=== PATIENT | male | born 1995 | race African-American/Black ===

== ENCOUNTER 2017-12-17 18:06 | Emergency (ER) | payer OTHER ==
[2017-12-17 18:13] VITALS: BP 139/85
--- NOTE | 2017-12-17 18:33 | ED Physician Documentation ---
PD HPI HEENT - Stated complaint Stated Complaint: THROAT PX - Chief complaint Chief Complaint: Heent - History obtained from History obtained from: Patient - History of Present Illness Timing - onset: Other (Sore throat for a week associated with chills and fatigue but no Runny nose or cough. No measured fevers. He also notes that he was elbowed while playing basketball 3 nights ago and would like something for the wound on his lip.) Review of Systems Constitutional: denies: Fever, Chills Throat: reports: Sore throat Cardiac: denies: Chest pain / pressure, Palpitations Respiratory: denies: Dyspnea, Cough PD PAST MEDICAL HISTORY - Past Medical History Past Medical History: No - Past Surgical History Past Surgical History: No - Present Medications Home Medications: Ambulatory Orders Medication Instructions Recorded Confirmed Bacitracin Zinc Oint 1 applic TOP BID #1 tube 12/17/17 Ibuprofen [Motrin] 800 mg PO Q8H PRN #30 tablet 12/17/17 - Allergies Allergies/Adverse Reactions: Allergies Allergy/AdvReac Type Severity Reaction Status Date / Time No Known Drug Allergies Allergy Verified 12/17/17 18:13 - Social History Does the pt smoke?: No Smoking Status: Never smoker PD ED PE NORMAL - Vitals Vital signs reviewed: Yes - General General: Alert and oriented X 3, No acute distress - HEENT HEENT: Other (Slightly swollen tonsils with small exudates but no adenopathy. He has abrasion on the lower lip that is healing okay.) - Neck Neck: Supple, no meningeal sign - Respiratory Respiratory: No respiratory distress, Clear bilaterally - Abdomen Abdomen: Non tender - Neuro Neuro: Alert and oriented X 3, Normal speech Results - Vitals Vitals: Vital Signs - 24 hr 12/17/17 18:11 Temperature 36.4 C L Heart Rate 73 Respiratory 18 Rate Blood Pressure 139/85 H O2 Saturation 97 Oxygen O2 Source Room air - Labs Labs: Laboratory Tests 12/17/17 18:15 Group A Strep Rapid Negative PD MEDICAL DECISION MAKING - Sepsis Event Vital Signs: Vital Signs - 24 hr 12/17/17 18:11 Temperature 36.4 C L Heart Rate 73 Respiratory 18 Rate Blood Pressure 139/85 H O2 Saturation 97 Oxygen O2 Source Room air Departure - Departure Disposition: 01 Home, Self Care Clinical Impression: Sore throat Lip abrasion Qualifiers: Encounter type: initial encounter Qualified Code(s): S00.511A - Abrasion of lip, initial encounter Condition: Good Record reviewed to determine appropriate education?: Yes Instructions: ED Avulsion Dermal, ED Pharyngitis Viral Report Pending Prescriptions: Bacitracin Zinc Oint 1 applic TOP BID #1 tube Ibuprofen [Motrin] 800 mg PO Q8H PRN #30 tablet PRN Reason: PAIN &/OR FEVER Comments: Your rapid strep test is negative. We will also culture your throat and call you if a bacterial pathogen is isolated. Return if worse or if new symptoms develop. [place] if not better. Your blood pressure was elevated today on check into the emergency department. This does not mean that you have hypertension, it is a common phenomenon to come to the emergency department and have elevated blood pressure. I recommend that you see your primary care physician within the week to have it rechecked when you are feeling better.
== END 2017-12-17 18:49 | disposition home or self-care (01) ==
LOC: ED 18:06
DX: J02.9 Acute pharyngitis, unspecified (principal); S00.511A Abrasion of lip, initial encounter; W50.0XXA Accidental hit or strike by another person, initial encounter; Y93.67 Activity, basketball
CPT/HCPCS: 87070; 87430; 99283

== ENCOUNTER 2017-12-18 10:46 | Emergency (ER) | payer OTHER ==
[2017-12-18 11:03] VITALS: BP 143/70
[2017-12-18] MEDS ORDERED: BENZOCAINE/MENTHOL LOZENGE MM STA (12:10)
[2017-12-18] MEDS ORDERED: AMOXICILLIN 250 MG CAPSULE PO STA (12:10)
[2017-12-18] MEDS ORDERED: DEXAMETHASONE 10 MG/ML VIAL PO STA (12:10)
[2017-12-18] MEDS ORDERED: CHERRY SYRUP 10 ML UDC PO ONE (12:15)
--- NOTE | 2017-12-18 12:26 | ED Physician Documentation ---
History of Present Illness - Stated complaint Stated Complaint: FEVER/NAUSEA - Chief complaint Chief Complaint: Fever - Additonal information Additional information: hx from pt [address] [place] male 2 concerns 1) elbow vs lower lip in basketball now swollen and yellow concern for infection 2) bad sore throat fever mild cough [facility] but no appt - was not seen by provider - sent to ER Review of Systems Constitutional: reports: Fever, Myalgias, Fatigue Throat: reports: Sore throat Respiratory: reports: Cough GI: denies: Abdominal Pain, Nausea, Vomiting, Diarrhea Immunocompromised: denies: Immunocompromised PD PAST MEDICAL HISTORY - Past Medical History Past Medical History: No - Past Surgical History Past Surgical History: No - Present Medications Home Medications: Ambulatory Orders Medication Instructions Recorded Confirmed Bacitracin Zinc Oint 1 applic TOP BID #1 tube 12/17/17 Ibuprofen [Motrin] 800 mg PO Q8H PRN #30 tablet 12/17/17 Amoxicillin 500 mg PO Q8H #30 capsule 12/18/17 - Allergies Allergies/Adverse Reactions: Allergies Allergy/AdvReac Type Severity Reaction Status Date / Time No Known Drug Allergies Allergy Verified 12/18/17 11:03 - Social History Does the pt smoke?: No Smoking Status: Never smoker PD ED PE NORMAL - Vitals Vital signs reviewed: Yes - General General: Alert and oriented X 3 - HEENT HEENT: Ears normal. 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, abrasions to lower lip with swellign and yeloow crusting, no pain with tracheal manipulation, ant no posterior cerv adenopathy) - Cardiac Cardiac: RRR - Respiratory Respiratory: No respiratory distress, Clear bilaterally - Abdomen Abdomen: Soft, Non tender, No organomegaly Results - Vitals Vitals: Vital Signs - 24 hr 12/18/17 11:00 Temperature 36.9 C Heart Rate 73 Respiratory 16 Rate Blood Pressure 143/70 H O2 Saturation 100 Oxygen O2 Source Room air PD MEDICAL DECISION MAKING - Sepsis Event Vital Signs: Vital Signs - 24 hr 12/18/17 11:00 Temperature 36.9 C Heart Rate 73 Respiratory 16 Rate Blood Pressure 143/70 H O2 Saturation 100 Oxygen O2 Source Room air Departure - Departure Disposition: 01 Home, Self Care Clinical Impression: Exudative pharyngitis Infected lip laceration Qualifiers: Encounter type: initial encounter Qualified Code(s): S01.511A - Laceration without foreign body of lip, initial encounter; L08.9 - Local infection of the skin and subcutaneous tissue, unspecified Condition: Good Instructions: ED Strep Pharyngitis Poss Follow-Up: SHIKHA Barnett [Provider Group] Prescriptions: Amoxicillin 500 mg PO Q8H #30 capsule Comments: The antibiotics prescribed will help the throat as well as the lip infection. May also apply antibiotic ointment to the outer lip (not in the mouth) You were given a dose of steroids to decrease the throat swelling and pain and help you swallow better Rest and drink plenty of fluids Recommend motrin tylenol and chloraseptic spray to ease your throat pain SIQ or 2 days Return if worse Forms: Activity restrictions
== END 2017-12-18 12:38 | disposition home or self-care (01) ==
LOC: ED 10:46
DX: J02.9 Acute pharyngitis, unspecified (principal); L08.9 Local infection of the skin and subcutaneous tissue, unspecified; X58.XXXA Exposure to other specified factors, initial encounter; Y93.67 Activity, basketball
CPT/HCPCS: 99283; A9270

== ENCOUNTER 2018-04-25 22:02 | Emergency (ER) | payer OTHER ==
--- NOTE | 2018-04-25 22:45 | XRAY Report ---
Reason: sports injury; c/o pain L shoulder w/ movement. Procedure Date: 04/25/2018 Accession Number: [id number] / [id number] Procedure: XR - Shoulder 3 View LT CPT Code: FULL RESULT: EXAM: LEFT SHOULDER RADIOGRAPHY EXAM DATE: 04/25/2018 10:16 PM. CLINICAL HISTORY: Sports injury; c/o pain L shoulder w/ movement. History of multiple prior shoulder dislocations. Left shoulder pain, basketball injury. COMPARISON: None. TECHNIQUE: 3 views. FINDINGS: Bones: Normal. No fracture or bone lesion. Joints: The glenohumeral and acromioclavicular joints are normal. Soft tissues: The visualized hemithorax is unremarkable. No soft tissue swelling. IMPRESSION: Normal shoulder radiography. [facility]
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
[2018-04-26] MEDS: ACETAMINOPHEN 325 MG TABLET PO STA (00:06)
[2018-04-26] MEDS: IBUPROFEN 600 MG TABLET PO STA (00:06)
[2018-04-26 00:18] VITALS: BP 135/80
== END 2018-04-26 00:20 | disposition home or self-care (01) ==
LOC: ED 22:02
DX: M24.412 Recurrent dislocation, left shoulder (principal); X50.1XXA Overexertion from prolonged static or awkward postures, initial encounter; Y99.0 Civilian activity done for income or pay
CPT/HCPCS: 99282; 99283

== ENCOUNTER 2019-04-16 08:38 | Day surgery (SDC) | payer OTHER ==
[2019-04-16] MEDS ORDERED: LACTATED RINGERS 1,000 ML IV ONE ×2 (08:46→13:37)
[2019-04-16] MEDS ORDERED: cefTRIAXone 2 GM VIAL ONE (08:49)
[2019-04-16] MEDS ORDERED: BUPIVACAINE 0.5% PF 30 ML VIAL ONE (09:08)
[2019-04-16] MEDS ORDERED: EPINEPHrine 1 MG/ML AMP ONE (09:09)
--- NOTE | 2019-04-16 09:39 | ANESTHESIA ---
Pre-Anesthesia VS, & Labs - Diagnosis L shoulder instability, Hill Sachs lesion, possible remplissage - Procedure L shoulder scope w/SLAP repair, possible remplissage Vital Signs: Temp Pulse Resp BP Pulse Ox 36.4 C L 61 18 140/84 H 100 04/16/19 08:56 04/16/19 08:56 04/16/19 08:56 04/16/19 08:56 04/16/19 08:56 Height 5 ft 11 in Weight (kg) 77.11 kg Body Mass Index 23.8 - NPO >8 hours Home Medications and Allergies Home Medications: Ambulatory Orders No Known Home Medications 04/12/19 No Known Home Medications 04/12/19 Allergies/Adverse Reactions: Allergies Allergy/AdvReac Type Severity Reaction Status Date / Time No Known Drug Allergies Allergy Verified 04/12/19 12:48 Anes History & Medical History - Anesthetic History Anesthesia Complications: reports: No previous complications Family history of Anesthesia Complications: Denies Family history of Malignant Hyperthermia: Denies - Medical History Cardiovascular: reports: None Pulmonary: reports: None Gastrointestinal: reports: None Urinary: reports: None Musculoskeletal: reports: Other Endocrine/Autoimmune: reports: None Skin: reports: None Smoking Status: Never smoker Psychosocial: reports: Alcohol (social) - Surgical History Other Past Surgical History: no previous surgeries Exam General: Alert, Oriented x3, Cooperative Dental: WNL Mouth Opening: Greater than 4 Fingerbreadths Neck Mobility: Normal Mallampati classification: I Thyromental Distance: greater than 6 cm Respiratory: Lungs clear, Normal breath sounds, No respiratory distress Cardiovascular: Regular rate Neurological: Normal speech Mental/Cognitive Status: Alert/Oriented X3, Normal for patient Cognitive Status: Within normal limits Plan Anesthesia Type: General, Supraclavicular Block Regional Block: Per Surgeon's request for Post Op pain control Consent for Procedure(s) Verified and Reviewed: Yes Code Status: Attempt Resuscitation ASA classification: 1-Healthy patient Is this case an emergency?: No
[2019-04-16] MEDS ORDERED: ONDANSETRON 4 MG/2 ML VIAL IVP ONE (10:16)
[2019-04-16] MEDS ORDERED: LIDOCAINE-MPF 2% 5 ML VIAL IM ONE (10:16)
[2019-04-16] MEDS ORDERED: ROCURONIUM 50 MG/5 ML VIAL IVP ONE (10:16)
[2019-04-16] MEDS ORDERED: DEXAMETHASONE 4 MG/ML VIAL IVP ONE (10:16)
[2019-04-16] MEDS ORDERED: NEOSTIGMINE 1 MG/1 ML 10 ML MDV IVP ONE (10:16)
[2019-04-16] MEDS ORDERED: PROPOFOL 200 MG/20 ML VIAL IVP ONE (10:16)
[2019-04-16] MEDS ORDERED: MIDAZOLAM 2 MG/2 ML VIAL IVP ONE (10:16)
[2019-04-16] MEDS ORDERED: GLYCOPYRROLATE 1 MG/5 ML VIAL IVP ONE (10:16)
[2019-04-16] MEDS ORDERED: EPINEPHrine 1 MG/ML AMP IR ONE (11:03)
[2019-04-16] MEDS ORDERED: oxyCODONE 5 MG TABLET PO PRN (13:32)
[2019-04-16] MEDS ORDERED: ONDANSETRON 4 MG/2 ML VIAL IVP PRN (13:32)
[2019-04-16] MEDS ORDERED: ACETAMINOPHEN 1,000 MG/100 ML 100 ML IV ONE (13:34)
--- NOTE | 2019-04-16 13:43 | OPERATIVE REPORT ---
Operative Report - Other Other Information/Narrative: Date of Surgery: 16 April 2019 Pre-Op Diagnosis: Left shoulder anterior instability. Labral tear. Hill-Sachs lesion Procedure: Left shoulder arthroscopic Bankart repair with Remplissage Postop Diagnosis: Same Primary Surgeon: Maximino Yuan Secondary Surgeon: Kash Cruz Complications: None EBL: 20 cc IMPLANTS: Arthrex knotless corkscrew x2. Arthrex knotless suture tack x4 POSTOPERATIVE PLAN: 0-2 weeks-Sling at all times. Pendulum exercises 5 times per day. 2-6 weeks-Passive range of motion with the following limits: FF to 120 with thumb up, ER to 30, abduction to 90 with palm down 6-12 weeks-Active range of motion in all planes without limitation. Isometric rotator cuff strengthening is allowed 12-16 weeks-Gradually increase strengthening 16 weeks and beyond-Introduce dynamic activities EXAMINATION UNDER ANESTHESIA: ROM: Full Anterior load and shift: Grade 2 instability Posterior load and shift: Normal Inferior sulcus: Normal ARTHROSCOPIC FINDINGS: Rotator interval: Injected synovium stained with hemosiderin throughout the s houlder. No tear of the rotator interval. Biceps tendon & SLAP: Type I SLAP tear was debrided. Biceps tendon and anchor was intact. Subscapularis: Normal Rotator Cuff: Normal HAGL: Small split inferiorly without significant displacement which was left in place Labrum: Anterior Bankart tear that had medialized extending from 7:00 to 3:00. The labrum had ossified or this was a bony Bankart because there was some bone within the interval. This was incorporated into the repair. Glenoid Cartilage: Large GLAD lesion along the anterior rim measuring 5 mm x 20 mm. This was debrided and the labrum was repaired into it. There was a 10 to 15% bone loss anteriorly Humeral Head Cartilage: Large but shallow Hill-Sachs lesion. Arthroscopic range of motion showed that it engaged at the 9090 position. Rempel size was performed INDICATION FOR SURGERY: 23-year-old male with multiple shoulder dislocations and persistent instability on daily activities and while playing sports he had a Bankart lesion without significant bone involved and a Hill-Sachs lesion.. Nonoperative managment failed to resolve symptoms. The risks, benefits, and alternatives were discussed. Risks included pain, bleeding, infection, damage to nearby structures, lack of symptom relief, implant complications, stiffness, need for further surgeries, DVT, PE, stroke, and even . He signed a written consent form. PROCEDURE IN DETAIL: The patient was met in the preoperative holding on the day of the procedure. Operative extremity was signed. Consent was verified. He desired to proceed. Regional anesthesia was obtained in the preoperative area. They were brought to the operating room and surrendered to anesthesia. Once general anesthesia was obtained they were placed in the lateral decubitus position with the operative side up. An axillary roll was placed and all bony prominences were well-padded. They were then prepped and draped in the standard sterile fashion. A surgical timeout was held to confirm the patient procedure, identity, procedure, laterality, allergies, images, and antibiotics. All were in agreement we proceeded. Balanced suspension was applied and a standard diagnostic arthroscopy was performed utilizing posterior and anterior superior portal sites. The anterior superior portal site was created under direct visualization. The findings of the diagnostic arthroscopy can be found above. A mid glenoid portal was then created under direct visualization bordering the subscapularis tendon. I then used a combination of high and low angled elevators to develop the labral tear and release it from off the glenoid neck. I then used to the pineapple rasp to finalize my release and abraded the bone to a bleeding bed. A sucker shaver was placed in the interval to debride any loose tissue and further abrade the glenoid neck. The labrum had ossified and/or there is a small amount of bony Bankart within the tissue. The glad lesion was debrided at that time. Following this I prepared the Hill-Sachs lesion. I removed lateral traction to be able to work more easily at that location. A shaver and a pineapple rasp was used to debride synovial tissue that had scarred over the bed of bone. The bed of bone began to bleed. I then created a new portal site but did not bring the cannula all the way into the joint, I left it just on the other side of the capsule in the subacromial space. I then brought the drill guide in and placed an inferior anchor through the capsule. I then translated the guide 1 to 2 cm further superiorly and placed the second anchor through the capsule. I then passed the knotless sutures in preparation for tightening but did not tighten them completely. The sutures were saved until the labrum had been fixed. I then established a percutaneous 7:00 portal utilizing the Arthrex system. I then placed an anchor at the 0 6:30 position. The suture was passed using an appropriate 25 degree suture lasso. The labrum was secured using knotless technique. Appropriate tension was confirmed with a probe and the excess suture was cut. Using the same technique additional anchors were placed at 5:00, 4:00, and 3:00. The capsule was advanced to restore proper tension. The bone within the labrum was incorporated into the repair. Proper capsular tension was restored and a labral bumper was recreated. Balanced suspension was then re leased. The rim. Sutures were then tightened under direct visualization and the capsule reduced nicely into the Hill-Sachs lesion. Final images were then taken. The portal sites were then closed with 3-0 Monocryl buried. Mastisol and Steri- Strips were applied. A sterile dressing and a sling was applied. He was awakened and transferred to the recovery room.
[2019-04-16] MEDS ORDERED: fentaNYL 100 MCG/2 ML VIAL ONE (13:49)
[2019-04-16] MEDS ORDERED: HYDROmorphone 0.5 MG/0.5 ML SYRINGE ONE (13:49)
[2019-04-16 15:02] VITALS: BP 149/94
== END 2019-04-16 08:39 | disposition home or self-care (01) ==
LOC: SDS 08:38
PROVIDERS: ATTEND Orthopaedic Surgery
PROC: 0RQK4ZZ Repair Left Shoulder Joint, Percutaneous Endoscopic Approach (ICD-10-PCS; principal; 2019-04-16 10:30)
DX: S43.432A Superior glenoid labrum lesion of left shoulder, initial encounter (principal); S42.295A Other nondisplaced fracture of upper end of left humerus, initial encounter for closed fracture

== ENCOUNTER 2019-08-18 14:38 | Emergency (ER) | payer OTHER ==
[2019-08-18] MEDS ORDERED: ONDANSETRON 4 MG/2 ML VIAL IVP STA (14:56)
[2019-08-18] MEDS ORDERED: PANTOPRAZOLE 40 MG VIAL IVP STA (14:56)
[2019-08-18] MEDS ORDERED: SODIUM CHLORIDE 0.9% 1,000 ML IV STA (14:56)
[2019-08-18 15:10] LABS: BASOPHILS % (AUTO) 0.8 %; EOSINOPHILS % (AUTO) 0.6 %; HGB - HEMOGLOBIN 17.9 g/dL (14.0-18.0); LYMPHOCYTES # (AUTO) 1.4 10^3/uL (1.5-3.5); LYMPHOCYTES % (AUTO) 26.1 %; MEAN CORPUSCULAR HEMOGLOBIN 29.2 pg (27.0-31.0); MEAN CORPUSCULAR VOLUME 85.7 fL (80.0-94.0); MEAN PLATELET VOLUME 10.2 fL (7.4-11.4); MONOCYTES # (AUTO) 0.4 10^3/uL (0.0-1.0); NEUTROPHILS # (AUTO) 3.4 10^3/uL (1.5-6.6); NEUTROPHILS % (AUTO) 64.1 %; PLT - PLATELET COUNT 310 10^3/uL (130-450); RED BLOOD COUNT 6.14 10^6/uL (4.70-6.10); RED CELL DISTRIBUTION WIDTH 12.4 % (12.0-15.0); WHITE BLOOD COUNT 5.3 x10^3/uL (4.8-10.8)
--- NOTE | 2019-08-18 15:13 | ED Physician Documentation ---
History of Present Illness - Stated complaint Stated Complaint: VOMITING - Chief complaint Chief Complaint: Abd Pain - History obtained from History obtained from: Patient - History of Present Illness Timing: Today Pain level max: 0 Pain level now: 0 - Additonal information Additional information: 24-year-old male presents to the emergency department stating That he drank alcohol last night and had vomiting last night and this morning. Small amount of blood in the vomit this morning. Nothing makes it better or worse. No abdominal pain. No diarrhea. No constipation. Review of Systems Constitutional: denies: Fever, Chills Cardiac: denies: Chest pain / pressure Respiratory: denies: Cough GI: reports: Nausea, Vomiting, Hematemesis (Small amount of bright red blood in the vomit after vomiting several times). denies: Diarrhea Skin: denies: Rash Musculoskeletal: denies: Neck pain, Back pain Neurologic: denies: Headache PD PAST MEDICAL HISTORY - Past Medical History Cardiovascular: None Respiratory: None Endocrine/Autoimmune: None GI: None : None HEENT: None Psych: None Musculoskeletal: Other Derm: None - Past Surgical History Past Surgical History: No - Present Medications Home Medications: Ambulatory Orders Medication Instructions Recorded Confirmed Ondansetron Odt [Zofran] 4 mg TL Q6H PRN #10 tablet 08/18/19 - Allergies Allergies/Adverse Reactions: Allergies Allergy/AdvReac Type Severity Reaction Status Date / Time No Known Drug Allergies Allergy Verified 08/18/19 14:45 - Social History Does the pt smoke?: No Smoking Status: Never smoker Does the pt drink ETOH?: No Does the pt have substance abuse?: No - Immunizations Immunizations are current?: Yes - POLST Patient has POLST: No PD ED PE NORMAL - Vitals Vital signs reviewed: Yes - General General: Alert and oriented X 3, No acute distress - HEENT HEENT: Moist mucous membranes - Neck Neck: Supple, no meningeal sign - Cardiac Cardiac: RRR - Respiratory Respiratory: No respiratory distress, Clear bilaterally - Abdomen Abdomen: Soft, Non tender, Non distended - Derm Derm: Warm and dry, No rash - Extremities Extremities: No edema - Neuro Neuro: Alert and oriented X 3 - Psych Psych: Normal mood, Normal affect Results - Vitals Vitals: Vital Signs - 24 hr 08/18/19 08/18/19 14:43 14:45 Temperature 36.1 C L Heart Rate 76 75 Respiratory 14 16 Rate Blood Pressure 151/89 H 148/65 H O2 Saturation 97 98 Oxygen O2 Source Room air - Labs Labs: Laboratory Tests 08/18/19 08/18/19 08/18/19 15:00 15:00 15:15 WBC 5.3 RBC 6.14 H Hgb 17.9 Hct 52.6 H MCV 85.7 MCH 29.2 MCHC 34.0 RDW 12.4 Plt Count 310 MPV 10.2 Neut # (Auto) 3.4 Lymph # (Auto) 1.4 L [place] # (Auto) 0.4 Eos # (Auto) 0.0 Baso # (Auto) 0.0 Absolute Nucleated RBC 0.00 Nucleated RBC % 0.0 PT 14.3 H INR 1.3 H Sodium 139 Potassium 4.3 Chloride 102 Carbon Dioxide 26 Anion Gap 11.0 BUN 14 Creatinine 1.3 H Estimated GFR (MDRD) 84 L Glucose 115 H Calcium 9.4 Total Bilirubin 0.9 AST 35 ALT 38 Alkaline Phosphatase 70 Total Protein 8.7 H Albumin 5.1 Globulin 3.6 Albumin/Globulin Ratio 1.4 Lipase 25 PD MEDICAL DECISION MAKING - ED course Complexity details: reviewed results, re-evaluated patient, considered differential, d/w patient ED course: Patient is well-appearing, nontoxic. Afebrile. Tolerating p.o. without difficulty. Given Zofran, Protonix. No significant lab abnormalities. Given IV fluids. We will continue supportive care at home and have him follow-up with his doctor for further care. The blood is likely secondary to repeated emesis. Patient counseled regarding signs and symptoms for which I believe and urgent re-evaluation would be necessary. Patient with good understanding of and agreement to plan and is comfortable going home at this time This document was made in part using voice recognition software. While efforts are made to proofread this document, sound alike and grammatical errors may occur. Departure - Departure Disposition: 01 Home, Self Care Clinical Impression: Vomiting Qualifiers: Vomiting type: unspecified Vomiting Intractability: non-intractable Nausea presence: with nausea Qualified Code(s): R11.2 - Nausea with vomiting, unspecified Condition: Good Instructions: ED Nausea Vomiting Follow-Up: your,doctor in 1 week if not better [Other] Prescriptions: Ondansetron Odt [Zofran] 4 mg TL Q6H PRN #10 tablet PRN Reason: Nausea / Vomiting Comments: Drink plenty of fluids today. Return If you worsen. Avoid alcohol.
[2019-08-18 15:21] LABS: ALBUMIN 5.1 g/dL (3.2-5.5); ALBUMIN/GLOBULIN RATIO 1.4 (1.0-2.2); BILIRUBIN,TOTAL 0.9 mg/dL (0.2-1.0); CALCIUM 9.4 mg/dL (8.5-10.3); CREATININE 1.3 mg/dL (0.6-1.2); TOTAL PROTEIN 8.7 g/dL (6.7-8.2)
[2019-08-18 15:30] LABS: INR 1.3 (0.8-1.2); PT - PROTHROMBIN TIME 14.3 secs (9.9-12.6)
[2019-08-18 16:01] VITALS: BP 114/68
== END 2019-08-18 16:00 | disposition home or self-care (01) ==
LOC: ED 14:38
DX: R11.2 Nausea with vomiting, unspecified (principal)
CPT/HCPCS: 36415; 80053; 83690; 85025; 85610; 86850; 86900; 86901; 96374; 99284

== ENCOUNTER 2020-02-02 00:33 | Emergency (ER) | payer OTHER ==
--- NOTE | 2020-02-02 01:36 | ED Physician Documentation ---
PD HPI LOWER EXT INJURY - Stated complaint Stated Complaint: LT ANKLE INJURY - Chief complaint Chief Complaint: Ext Problem - History obtained from History obtained from: Patient - History of Present Illness PD HPI LOW EXT INJURY LOCATION: Left, Ankle Type of injury: Twist Where injury occurred: Home Timing - onset: Enter time (22:00), Today Timing - details: Abrupt onset Pain level now: 8 Improved by: Rest Worsened by: Moving, Palpating Associated symptoms: Swelling. No: Weakness, Numbness Similar symptoms before: Has not had sx before Recently seen: Not recently seen - Additional information Additional information: c/o sudden onset left ankle pain approximately 10 PM tonight when walking down stairs in his house. He missed a step, causing twisting injury. Unable to weight-bear due to pain Review of Systems Musculoskeletal: reports: Joint pain, Joint swelling, Pain with weight bearing Neurologic: denies: Focal weakness, Numbness PD PAST MEDICAL HISTORY - Past Medical History Cardiovascular: None Respiratory: None Endocrine/Autoimmune: None GI: None : None HEENT: None Psych: None Musculoskeletal: Other Derm: None - Past Surgical History Past Surgical History: No - Present Medications Home Medications: Ambulatory Orders Medication Instructions Recorded Confirmed HYDROcod/ACETAM 5/325 [Harrison 5/325] 1 - 2 ea PO Q6H PRN #15 tablet 02/02/20 - Allergies Allergies/Adverse Reactions: Allergies Allergy/AdvReac Type Severity Reaction Status Date / Time No Known Drug Allergies Allergy Verified 02/02/20 00:39 - Social History Does the pt smoke?: No Smoking Status: Never smoker Does the pt drink ETOH?: No Does the pt have substance abuse?: No - Immunizations Immunizations are current?: Yes - POLST Patient has POLST: No PD ED PE NORMAL - Vitals Vital signs reviewed: Yes - General General: Alert and oriented X 3, No acute distress (at rest), Well developed/nourished - Derm Derm: Normal color, Warm and dry - Neuro Neuro: No motor deficit, No sensory deficit PD ED PE EXPANDED - Extremities Extremities: Other (TTP left ankle, most pronounced at lateral malleolus with mild TTP lateral asepct forefoot) Results - Vitals Vitals: Oxygen O2 Source Room air - Rads (name of study) left foot xrays Radiology: Prelim report reviewed, See rad report left ankle xrays Radiology: Prelim report reviewed, See rad report PD MEDICAL DECISION MAKING - ED course Complexity details: reviewed results, re-evaluated patient, considered differential, d/w patient Departure - Departure Disposition: 01 Home, Self Care Clinical Impression: Avulsion fracture of left ankle Condition: Good Instructions: ED Crutch Walking, ED Fx Ankle Lateral Malleolus Follow-Up: Junior Warner MD [Provider Admit Priv/Credential] - Within 1 week Prescriptions: HYDROcod/ACETAM 5/325 [Harrison 5/325] 1 - 2 ea PO Q6H PRN #15 tablet PRN Reason: Pain Forms: Activity restrictions Discharge Date/Time: 02/02/20 03:34
[2020-02-02] MEDS ORDERED: IBUPROFEN 600 MG TABLET PO STA (01:46)
[2020-02-02] MEDS ORDERED: HYDROcod/ACETAM 5/325 MG TABLET PO STA (03:16)
[2020-02-02 03:36] VITALS: BP 125/88
--- NOTE | 2020-02-02 07:24 | XRAY Report ---
PROCEDURE: Foot 3 View LT INDICATIONS: injury, pain, tenderness TECHNIQUE: 3 views of the foot were acquired. COMPARISON: None FINDINGS: Bones: No fractures or dislocations. No suspicious bony lesions. Soft tissues: Trace tibiotalar joint effusion. Achilles tendon appears normal. IMPRESSION: 1. Trace tibiotalar joint effusion. 2. No visible fracture. 3. Concordant with preliminary report. Reviewed by: Helen Stanton MD on 02/02/2020 7:23 AM [facility] Approved by: Helen Stanton MD on 02/02/2020 7:23 AM PST Station ID: [id number]
--- NOTE | 2020-02-02 07:26 | XRAY Report ---
PROCEDURE: Ankle 3 View LT INDICATIONS: injury, pain, tenderness TECHNIQUE: 3 views of the ankle were acquired. COMPARISON: None FINDINGS: Bones: Tiny curvilinear avulsion fracture off the distal tip of the fibula. Bones are otherwise intac t.. Ankle mortise is normally aligned. No suspicious bony lesions. Soft tissues: Trace tibiotalar joint effusion. Achilles tendon appears normal. IMPRESSION: 1. Distal fibular avulsion fracture. 2. Trace tibiotalar joint effusion. 3. Concordant with preliminary report. Reviewed by: Helen Stanton MD on 02/02/2020 7:24 AM PST Approved by: Helen Stanton MD on 02/02/2020 7:24 AM PST Station ID: [id number]
== END 2020-02-02 03:34 | disposition home or self-care (01) ==
LOC: ED 00:33
DX: S82.892A Other fracture of left lower leg, initial encounter for closed fracture (principal); M25.472 Effusion, left ankle; W10.9XXA Fall (on) (from) unspecified stairs and steps, initial encounter; X50.1XXA Overexertion from prolonged static or awkward postures, initial encounter; Y92.009 Unspecified place in unspecified non-institutional (private) residence as the place of occurrence of the external cause
CPT/HCPCS: 73610; 73630; 99283; A9270

== ENCOUNTER 2020-04-04 11:40 | Emergency (ER) | payer OTHER ==
[2020-04-04] MEDS ORDERED: DEXAMETHASONE 10 MG/ML VIAL IM STA (12:29)
--- NOTE | 2020-04-04 12:31 | ED Physician Documentation ---
History of Present Illness - Stated complaint Stated Complaint: RASH - Chief complaint Chief Complaint: Allergic Rx - History obtained from History obtained from: Patient - Additonal information Additional information: 24-year-old man with no past medical history, No known allergies, presents with rash since having a sleep study on Monday with gel adhesive placement on his arms. He states that the rash began the next morning on his arms and then spread to his trunk, back, and both legs. It is pruritic, improved with oral Benadryl. He saw [facility] yesterday and was told to come to the emergency room if his rash got worse. Patient denies fever, facial/oral/throat swelling, chest pain, shortness of breath, nausea vomiting dizziness or headache. denies travel, sick contacts, covid exposure. Review of Systems Ten Systems: 10 systems reviewed and negative Constitutional: denies: Fever, Chills Skin: reports: Rash PD PAST MEDICAL HISTORY - Past Medical History Past Medical History: Yes Cardiovascular: Hypertension Respiratory: None Neuro: None Endocrine/Autoimmune: None GI: None : None HEENT: None Psych: None Musculoskeletal: Other Derm: None - Past Surgical History Past Surgical History: Yes Ortho: Shoulder arthroplasty - Present Medications Home Medications: Ambulatory Orders Medication Instructions Recorded Confirmed Ibuprofen [Motrin] 600 mg PO Q6H PRN 04/04/20 04/04/20 Methylprednisolone [Medrol Dose 1 each PO .PACKAGEINSTRUCTIONS 04/04/20 04/04/20 Pack] Ondansetron Odt [Zofran Odt] 4 mg TL Q6H PRN 04/04/20 04/04/20 - Allergies Allergies/Adverse Reactions: Allergies Allergy/AdvReac Type Severity Reaction Status Date / Time No Known Drug Allergies Allergy Verified 04/04/20 11:45 - Social History Does the pt smoke?: No Smoking Status: Never smoker Does the pt drink ETOH?: No Does the pt have substance abuse?: No - Immunizations Immunizations are current?: Yes - POLST Patient has POLST: No PD ED PE NORMAL - Vitals Vital signs reviewed: Yes - General General: Alert and oriented X 3, No acute distress, Well developed/nourished - HEENT HEENT: Atraumatic, PERRL, EOMI, Moist mucous membranes - Neck Neck: Supple, no meningeal sign - Cardiac Cardiac: RRR - Respiratory Respiratory: No respiratory distress, Clear bilaterally - Abdomen Abdomen: Non tender, Non distended - Male Male : Deferred - Rectal Rectal: Deferred - Back Back: No CVA TTP - Derm Derm: Normal color, Warm and dry, Other (raised erythematous blanching rash to BL forearms, thighs, trunk and back) - Extremities Extremities: No deformity, No edema - Neuro Neuro: Alert and oriented X 3 - Psych Psych: Normal mood, Normal affect Results - Vitals Vitals: Vital Signs - 24 hr 04/04/20 11:46 Temperature 36.9 C Heart Rate 84 Respiratory 18 Rate Blood Pressure 144/77 H O2 Saturation 100 Oxygen O2 Source Room air PD MEDICAL DECISION MAKING - ED course Complexity details: reviewed results, d/w patient ED course: 34-year-old male here for evaluation history of allergies presents with apparent allergic reaction, Progressively worsening over the past couple days. No anaphylactic features at present. strict return precautions discussed. patient will f/u with [facility] on monday. Departure - Departure Disposition: Home, Self Care Clinical Impression: Rash Condition: Good Instructions: ED Allergic Reaction General Other Comments: You have been seen in the emergency department for an allergic reaction. Continue to take Benadryl 50 mg (2 pills) every 6-8 hours as needed. You were given a steroid shot that will last for 3 days. Follow-up with [facility] on Monday. Return to the ED for any new or worsening symptoms including lightheadedness, nausea vomiting, headache, chest pain, shortness of breath, facial swelling, or other concerns. Forms: Activity restrictions
[2020-04-04 12:51] VITALS: BP 138/72
== END 2020-04-04 12:49 | disposition home or self-care (01) ==
LOC: ED 11:40
DX: R21 Rash and other nonspecific skin eruption (principal); I10 Essential (primary) hypertension
CPT/HCPCS: 96372; 99283; 99284